=== PATIENT | male | born 1960 | race Hispanic/Latino ===

== ENCOUNTER 2019-07-26 06:47 | Day surgery (SDC) | payer OTHER ==
[2019-07-23 17:08] LABS: BASOPHILS % (AUTO) 0.4 % (0.0-5.0); EOSINOPHILS % (AUTO) 2.8 % (0.0-8.0); HEMATOCRIT 42.2 % (42-54); LYMPHOCYTES % (AUTO) 34.1 % (21.0-51.0); MEAN CORPUSCULAR HEMOGLOBIN 30.5 pg (27.0-33.0); MEAN CORPUSCULAR HGB CONC 33.2 g/dL (32.0-36.0); MEAN CORPUSCULAR VOLUME 92.1 fL (79-99); MONOCYTES % (AUTO) 8.3 % (3.0-13.0); NEUTROPHILS % (AUTO) 54.4 % (40.0-77.0); PLATELET COUNT (AUTO) 231 K/uL (130-400); RED BLOOD CELL COUNT(AUTO) 4.58 MIL/uL (4.50-6.20); RED CELL DISTRIBUTION WIDTH 13.7 % (11.0-15.5); WHITE BLOOD COUNT (AUTO) 6.3 K/uL (4.8-10.8)
[2019-07-23 17:18] LABS: CREATININE 1.5 mg/dL (0.5-1.5); POTASSIUM 5.1 mmol/L (3.5-5.1)
[2019-07-23 17:27] VITALS: BP 120/64
[~2019-07-26] VITALS: Ht 176.5 cm; Wt 84.4 kg
[2019-07-26] VITALS (13 sets, daily range): BP systolic 84–129; BP diastolic 41–74
[~2019-07-26 06:47] MED LIST: ASPI-555 PO; ATOR40TA71 PO; BUPIVACAINE/EPI/PF 0.5% 30ML VIAL IJ ONE; FENO145T37 PO; GLIM2TAB4 PO; INSU100I21 SQ; METF-446 PO; MULT-1203 PO; RAMI2.5C16 PO; VIT D3
[2019-07-26] MEDS ORDERED: LIDOCAINE PF 2% 5ML ABBOJECT ONE (07:05)
[2019-07-26] MEDS ORDERED: ONDANSETRON HCL 4 MG/2 ML VIAL ONE (07:06)
[2019-07-26] MEDS ORDERED: SUCCINYLCHOLINE 200MG/10ML SYR ONE (07:06)
[2019-07-26] MEDS ORDERED: DEXAMETHASONE SOD PHOSPHATE 10MG/ML 1ML VIAL ONE (07:06)
[2019-07-26] MEDS ORDERED: GLYCOPYRROLATE 1 MG/5 ML SYRINGE ONE (07:06)
[2019-07-26] MEDS ORDERED: PROPOFOL 10 MG/ML 20ML VIAL IV ONE (07:06)
[2019-07-26] MEDS ORDERED: FENTANYL CITRATE PF 50 MCG/1 ML 2ML VIAL ONE (07:07)
[2019-07-26] MEDS ORDERED: MIDAZOLAM HCL 1 MG/ML 2ML VIAL ONE (07:07)
[2019-07-26] MEDS ORDERED: ROCURONIUM 10MG/1ML SYR 10 MG/ML ML ONE (07:07)
[2019-07-26] MEDS ORDERED: NEOSTIGMINE 5MG/5ML SYR IV ONE (07:07)
[2019-07-26] MEDS ORDERED: ROPIVACAINE 0.5% 5MG/ML 30ML IJ ONE (07:10)
[2019-07-26] MEDS ORDERED: PHENYLEPHRINE HCL 10 MG/ML 1ML VIAL IV ONE (07:19)
[2019-07-26] MEDS ORDERED: CEFAZOLIN SODIUM 1 GM VIAL ONE (07:22)
[2019-07-26] MEDS ORDERED: SODIUM CHLORIDE 0.9% 1000ML 1,000 ML IV ONE (07:22)
--- NOTE | 2019-07-26 07:33 | NUR ---
SKIN RIGHT SHOULDER CLIPPED AND WIPED WITH JAIME
--- NOTE | 2019-07-26 10:50 | NUR ---
ASSESSMENT RECEIVED PT FROM [facility]. [id number]. DRSG TO RIGHT SHOULDER DRY AND INTACT. NO BLEEDING, OOZING NOTED TO SITE. SLING IN PLACE TO RIGHT ARM. DENIES ANY PAIN. AT BEDSIDE. ICE Pack APPLIED TO SHOULDER.
--- NOTE | 2019-07-26 11:35 | NUR ---
DISCHARGE ORAL AND WRITTEN DISCHARGE INSTRUCTIONS ALONG WITH PRESCRIPTION GIVEN TO . RIGHT ARM IN SLING. DRSG DRY AND INTACT. NO OTHER QUESTIONS AT THIS TIME.
== END 2019-07-26 11:40 | disposition home or self-care (01) ==
LOC: DAH 06:47
PROVIDERS: ATTEND Orthopaedic Surgery
DX: M75.101 Unspecified rotator cuff tear or rupture of right shoulder, not specified as traumatic (principal); E11.9 Type 2 diabetes mellitus without complications; I10 Essential (primary) hypertension; I25.2 Old myocardial infarction; Z79.82 Long term (current) use of aspirin; Z79.899 Other long term (current) drug therapy; Z79.4 Long term (current) use of insulin; Z87.891 Personal history of nicotine dependence; Z82.49 Family history of ischemic heart disease and other diseases of the circulatory system; Z83.3 Family history of diabetes mellitus
CPT/HCPCS: 23412; 36415; 64415; 76942; 80048; 82948 ×2; 85025; A4215 ×2; A4221; A4222; A4223; A4248; A4450; A4565; A4600; A4663; A5120; A6207; C1713 ×2; J0330; J0690; J1100; J2001; J2250; J2370; J2405; J2704; J2710; J2795; J3010; J3490 ×2; J7030; J7120; 93005